=== PATIENT | male | born 1995 | race Two or more races ===

== ENCOUNTER 2020-11-17 10:20 | Outpatient (AMBR) | payer MEDICAID, SELFPAY ==
--- NOTE | 2020-11-17 11:08 | PTNOTE_ITS ---
PT OP Initial Eval Patient Information Visit Reasons: displaced fracture of shaft Medical Diagnosis: S62.327D Treatment Dx #1: Left Hand Pain Treatment Dx #2: Left Hand Weakness Start of Care: 11/17/20 Date of Onset: Aug 2020 Initial Assessment Subjective Pt is a 25 y/o male c/o left hand pain (6/10) started after he fracture is knuckle. Pt was working on his car and over-torque and hit the engine. Pt's xray found a displaced fracture of the fifth metacarpal shaft. Pt feels much better but still notice some weakness. Pt has limitation with recreational activities, lifting, gripping, chores, self care, work on his car, and performing ADLs. 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 Pt will benefit from physical therapy to increase strength and work on functional tasks. 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
--- NOTE | 2020-12-11 09:07 | PT.ODS1RPT ---
PT OP Progress/Discharge Note Date of Service: 12/11/20 Progress Note/DC Note Progress Note/Discharge Note: DC Note Patient Information Visit Reasons: displaced fracture of shaft Service Continue Service or Discharge: Discharge Discharge Date: 12/11/20 Status Assessment: Pt seen for inital evaluation and will be d/c due to non-compliance per attendance policy. Pt has no showed 3 appts (11/22, 11/24, and 12/08). Pt did not meet set goals in therapy, thank you for your referrals Office Procedures PT Procedures PT Date of Service: 11/17/20 OP PT Eval Mod Complex 30 minutes: Yes
== END 2020-12-06 23:59 | disposition home or self-care (01) ==
PROVIDERS: PCP Orthopaedic Surgery; Referring Provider Orthopaedic Surgery; Visit Provider Orthopaedic Surgery
DX: S62.327D Displaced fracture of shaft of fifth metacarpal bone, left hand, subsequent encounter for fracture with routine healing (principal); M79.642 Pain in left hand; R53.1 Weakness; W22.8XXD Striking against or struck by other objects, subsequent encounter
CPT/HCPCS: 97162

== ENCOUNTER 2025-01-28 02:57 | Emergency (ER) | payer MEDICAID, SELFPAY ==
[2025-01-28 03:28] VITALS: BP 155/69; PULSE 78; RESP 18; TEMP 36.8; O2SAT 98; BMI 23.7
--- NOTE | 2025-01-28 03:38 | PD.EDNV ---
Nausea/Vomit./Diarrhea-RME/HPI General Chief complaint: General Adult/Misc Complain Stated complaint: WOKE UP SWEATING AND SHAKING Time Seen by Provider: 01/28/25 03:36 Arrival date/time: 01/28/25 02:57 29M with history of daily alcohol use presents to ED with sweating and tremors that woke him up today. Patient's last drink was yesterday morning. Limitations: no limitations Related Data Allergies Allergy/AdvReac Type Severity Reaction Status Date / Time acetaminophen Allergy Intermediate FACE GETS Verified 01/28/25 03:03 RED, CAN'T BREATHE Review of Systems Review of Systems Systems Reviewed: All systems reviewed, normal except as documented Constitutional Constitutional: Reports system reviewed and no additional complaints, except as documented, Denies fever(s) and Denies headache(s) ENT Ears, Nose, Mouth, and Throat: Denies disequilibrium and Denies headache(s) Cardiovascular Cardiovascular: Reports system reviewed and no additional complaints, except as documented, Denies chest pain and Denies dyspnea Respiratory Respiratory: Reports system reviewed and no additional complaints, except as documented, Denies cough and Denies dyspnea Gastrointestinal Gastrointestinal: Reports system reviewed and no additional complaints, except as documented, Denies abdominal pain, Denies nausea and Denies vomiting Neurologic Neurologic: Reports system reviewed and no additional complaints, except as documented, Reports as per HPI, Denies confusion, Denies disequilibrium, Denies headache(s) and Reports tremor(s) Psychiatric Psychiatric: Denies confusion Past Medical History Social History SMOKING STATUS: Never smoker ED Exam General Limitations: Present no limitations General appearance: Present alert, in no apparent distress and anxious Head Head exam: Present atraumatic Eye Eye exam: Present normal appearance, PERRL and EOMI ENT ENT exam: Present normal exam, normal oropharynx and mucous membranes moist Neck Neck exam: Present normal inspection, full ROM and trachea midline Chest Chest inspection: Present normal inspection and symmetric chest wall rise Respiratory Respiratory exam: Present normal lung sounds bilaterally Cardiovascular Cardiovascular exam: Present regular rate, normal rhythm and normal heart sounds Abdominal Exam Abdominal exam: Present soft and normal bowel sounds Extremities Exam Extremities exam: Present normal inspection and full ROM Back Exam Back exam: Present normal inspection and full ROM Neurological Exam Neurological exam: Present alert, oriented X3 and CN II-XII intact Psychiatric Psychiatric exam: Present normal affect and normal mood Skin Skin exam: Present warm, dry, intact and normal color Course Quality Measures none Orders Category Date Time Status Diazepam [Valium] Med 01/28/25 03:37 Discontinued 10 mg PO X1 ONE Vital Signs Vital signs: Vital Signs Temperature 98.2 F 01/28/25 03:28 Pulse Rate 78 01/28/25 03:28 Respiratory Rate 18 01/28/25 03:28 Blood Pressure 155/69 H 01/28/25 03:28 Pulse Oximetry (%) 98 01/28/25 03:28 Oxygen Delivery Method Room Air 01/28/25 03:28 O2 at 98% on RA and WNLs Nausea/Vomiting/Diarrhea MDM Narrative MDM Narrative:: 29M with history of daily alcohol use presents to ED with sweating and tremors that woke him up today. Patient's last drink was yesterday morning. Physical exam reveals mildly dilated pupils. Patient has tremors. Patient is afebrile, alert, but anxious. Valium relieved symptoms. 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 Patient data External records reviewed:: [facility] previous records Clinical information provided by:: patient Social determinants that could affect healthcare access:: alcohol use Patient has the following chronic illnesses:: alcohol use How is presenting disease/condition affected by chronic disease/condition?: caused by Evaluation data The following diagnostics were reviewed and interpreted by me:: other (specify) (none) Lab and/or radiology exams considered but not ordered:: not ordered Interpretation Summary: n/a Medications / Prescriptions Medications / Prescriptions considered but not ordered:: ordered Medication administrations:: Medication Administration History Discontinued Medications Diazepam (Diazepam 5 Mg Tablet) 10 mg PO X1 ONE Stop: 01/28/25 03:38 Last Admin: 01/28/25 04:07 Dose: 10 mg Documented By: JE above Consultations Consultation(s) initiated? (list below): No Diagnosis Nausea Differential Diagnosis: traveler's diarrhea, food poisoning, gastroenteritis, clostridium difficile infection, drug-induced nausea and vomiting, dehydration and other (alcohol withdrawal) Most likely diagnosis given after review of the tests above:: alcohol withdrawal Admission Indicated Admission indicated?: not indicated Admission Request Was there a request for admission?: No Disposition Plan Disposition Plan: Discharge Discharge Attestation Discharge Attestation: The patient and all family members were given an opportunity to ask questions and understood the discharge instructions. Discharge instructions specifically effects, indications for sooner follow up or return to the emergency department, and the expected course of current diagnosis. Patient condition: Stable Discharge Plan Plan Patient Disposition: HOME (Self Care) Discharge Disposition comment: Stable Problem List Clinical Impression: Alcohol withdrawal Patient/Caregiver Discharge Instructions Education Materials: Alcohol Withdrawal: What to Expect Additional Instructions: Please follow-up with PCP within 24-48 hours and return immediately if symptoms worsen. Work with PCP for alcohol cessation. Print Language: [place] Stand Alone Forms: Patient Portal Info Letter MARIA INES/JORGE LUIS Supervising Physician MARIA INES/JORGE LUIS Supervising Physician: Dr. Awad
[2025-01-28] MEDS: DIAZEPAM 5 MG TABLET 10 MG PO (04:07)
== END 2025-01-28 04:40 | disposition home or self-care (01) ==
LOC: SERX 05:02
PROVIDERS: Emergency Provider Emergency Medicine; PCP Family Medicine
DX: F10.939 Alcohol use, unspecified with withdrawal, unspecified (principal)
CPT/HCPCS: 99282; A9270